=== PATIENT | male | born 2000 | race Caucasian/White ===

== ENCOUNTER 2021-10-09 14:46 | Emergency (ER) | payer BC, SELFPAY ==
[2021-10-09 14:50] VITALS: BP 128/70; PULSE 88; RESP 17; TEMP 37.1; O2SAT 98; BMI 23.7; BMI 39.9
--- NOTE | 2021-10-09 14:56 | XR_ITS ---
PROCEDURE INFORMATION: Exam: XR Sacrum and Coccyx, 2 or More Views Exam date and time: 10/09/2021 3:10 PM Age: 21 years old Clinical indication: Pain in coccyx area; Patient HX: Patient has fallen down some stairs 2 years ago and has had consistent pain since the fall 2 years ago. No recent injury. TECHNIQUE: Imaging protocol: XR of the sacrum and coccyx, 2 or more views. COMPARISON: No relevant prior studies available. FINDINGS: Bones/joints: Normal. No acute fracture. Soft tissues: Normal. IMPRESSION: No acute findings.
--- NOTE | 2021-10-09 15:22 | HMH.EDUTC ---
[facility] Disposition Clinical Impression: Tail bone pain Disposition: Home, Self-Care Condition on Discharge: Good Instructions: Non-Medication Pain Relief Additional Instructions: follow up with pcp for more work up if worsen or no improvement return or be seen in ed meds as ordered Prescriptions: predniSONE [Prednisone 20mg Tab] 20 mg PO BID #10 tab Prescription Printed Referrals: Kiran Woodall [Primary Care Provider] - Time of Disposition: 16:13 Medical Decision Making - Chase Inquiry Pt receiving controlled substance: No Vital Signs: 10/09/21 14:50 Temperature 98.7 F Temperature Source Oral Pulse Rate [Right Brachial] 88 Respiratory Rate 17 Blood Pressure [Right Arm] 128/70 Blood Pressure Mean [Right Arm] 89 Blood Pressure Source [Right Arm] Automatic Cuff Blood Pressure Position [Right Arm] Sitting 02 Sat by Pulse Oximetry 98 Oxygen Delivery Method Room Air [facility] HPI - General Chief complaint: Urgent [facility] Center Stated complaint: tailbone pain Time Seen by Provider: 10/09/21 15:22 Mode of Arrival: Ambulatory Source of Information: Patient Limitations: No Limitations Description of Symptoms (Recalled from Triage Doc. by RN): PATIENT REPORTS HE FELL IN 2019 AND BELIEVES HE INJURED HIS TAILBONE. HE STATES THE PAIN HAS COME AND GONE SINCE, BUT TODAY THE PAIN IS UNBEARABLE HEENT Symptoms (Recalled from RN notes): No Resp Symptoms (Recalled from RN notes): No Skin Symptoms (Recalled from RN notes): No MS Symptoms (Recalled from RN notes): Yes Functional Status (Recalled from RN notes): WNL - History of Present Illness Provider Complaint: 21 yr old male presents for tail bone pain. pt states in 2019 he fell down stairs and since then he has had pain that comes and goes. pt states on sunday he sat most of the day in a lawn chair and since then he has had pain only in his tail bone. no bladder or bowel issues. no injury since the fall in 2019 - Related Data Previous Rx's Medication Instructions Recorded predniSONE [Prednisone 20mg 20 mg PO BID #10 tab 10/09/21 Tab] - Worker's Comp Is this a Worker's Comp case?: No [facility] History - Hepatitis A Screen Attestation statement:: This patient has been screened for Hepatitis A risk factors. I have reviewed the patient's past medical history: Yes ROS Obtained: Yes Systems reviewed as appropriate & no additional complaints - Constitutional Constitutional: Reports system reviewed and no additional complaints, except as docu, Denies fever(s) - Eyes Eyes: Reports system reviewed and no additional complaints, except as docu, Denies itchy eyes - ENT Ears, Nose, Mouth, and Throat: Reports system reviewed and no additional complaints, except as docu, Denies sore throat - Cardiovascular Cardiovascular: Reports system reviewed and no additional complaints, except as docu, Denies chest pain - Respiratory Respiratory: Reports system reviewed and no additional complaints, except as docu, Denies chest congestion - Gastrointestinal Gastrointestingal: Reports: system reviewed and no additional complaints, except as docu. Denies: abdominal pain - Musculoskeletal Musculoskeletal: Reports system reviewed and no additional complaints, except as docu, Reports as per HPI - Integumentary/Breasts Skin/Breast: Reports system reviewed and no additional complaints, except as docu, Denies rash - Neurologic Neurologic: Reports system reviewed and no additional complaints, except as docu, Denies dizziness - Endocrine Endocrine: Reports system reviewed and no additional complaints, except as docu, Denies fatigue - Hematologic/Lymphatic Henatologic/Lymphatic: Reports system reviewed and no additional complaints, except as docu, Denies lymphadenopathy - Allergic/Immunologic Allergic/Immunologic: Reports system reviewed and no additional complaints, except as docu, Denies itchy eyes Physical Exam - General General appearance: alert, i
[2021-10-09 16:20] VITALS: BP 128/70; PULSE 88; RESP 17; TEMP 37.1; O2SAT 98
== END 2021-10-09 16:23 | disposition home or self-care (01) ==
PROVIDERS: Emergency Provider Nurse Practitioner Family; PCP Internal Medicine
DX: M53.3 Sacrococcygeal disorders, not elsewhere classified (principal)
CPT/HCPCS: 72220; 99212; G0463

== ENCOUNTER 2022-04-23 11:22 | Emergency (ER) | payer BC, SELFPAY ==
[2022-04-23 12:10] VITALS: BP 121/76; PULSE 76; RESP 18; TEMP 36.7; O2SAT 98; BMI 23.4
[2022-04-23 12:35] VITALS: BP 121/76; PULSE 76; RESP 18; TEMP 36.7; O2SAT 98
--- NOTE | 2022-04-23 13:04 | EXP.UTC ---
Discharge Plan Disposition Patient Disposition: Home, Self-Care Condition: Good Prescriptions Prescriptions: New polymyxin B sulf-trimethoprim [Polytrim] 10,000 unit- 1 mg/mL drops 2 drp ophthalmic (eye) Q6H 7 Days Qty: 10 0RF Rx Instructions: left eye while awake; do not exceed 6 doses in 24 hours No Action lamotrigine 25 mg Tablet 25 mg PO DAILY zonisamide 100 mg Capsule 100 mg PO DAILY lamotrigine 100 mg Tablet 100 mg PO DAILY Referrals Follow up/Referrals: Kiran Woodall [Primary Care Provider] - See instructions Activity Restrictions/Add. Instructions Additional Instructions/Restrictions: Wash hands well before and after applying drops Use drops as directed Follow up with your Eye Doctor if no improvement or any worsening of symptoms Straight to ER if any life threatening symptoms Clinical Impressions Clinical Impression: Conjunctivitis Stand Alone Forms Stand Alone Forms: Work/School Release Instructions Patient Instructions: Conjunctivitis, DI for Conjunctivitis Discharge ED Provider: Palma Noe [facility] General Stated complaint: LT eye redness Mode of Arrival: Ambulatory Source of Information: Patient Limitations: No Limitations Time Seen by Provider: 04/23/22 13:08 Description of Symptoms (Recalled from Triage Doc. by RN): PATIENT C/O REDNESS AND DRAINAGE TO LEFT EYE SINCE THIS MORNING HEENT Symptoms (Recalled from RN notes): Yes Resp Symptoms (Recalled from RN notes): No Skin Symptoms (Recalled from RN notes): No MS Symptoms (Recalled from RN notes): No Functional Status (Recalled from RN notes): WNL History of Present Illness Provider Complaint: Patient states that family member has had pink eye States that he woke up this morning with his left eye red and matted together States that as the day has went on it has continued so he came in to get it checked Related Data Home Medications Medication Instructions Recorded Confirmed lamotrigine 100 mg tablet 100 mg PO DAILY EPILEPSY 04/23/22 04/23/22 lamotrigine 25 mg tablet 25 mg PO DAILY EPILEPSY 04/23/22 04/23/22 zonisamide 100 mg capsule 100 mg PO DAILY EPILEPSY 04/23/22 04/23/22 Previous Rx's Medication Instructions Recorded polymyxin B sulfate 10,000 2 drp ophthalmic (eye) Q6H 7 days 04/23/22 unit-trimethoprim 1 mg/mL eye #10 mL drops (Polytrim) Allergies Allergy/AdvReac Type Severity Reaction Status Date / Time No Known Allergies Allergy Verified 04/23/22 12:29 Worker's Comp Is this a Worker's Comp case?: No [facility] Disclaimer: The information contained in this section may have been updated after the patient was seen, as this information can be updated by other users. Medical History (Updated 04/23/22 @ 13:08 by Palma Noe APRN) Seizure disorder Social History (Updated 04/23/22 @ 12:28 by Stacey Virk RN) Smoking Status: Current every day smoker alcohol intake: never current occupational status: other Travel in the last 8 weeks: None ROS Obtained: Yes All systems reviewed & no additional complaints except as documented and Yes Systems reviewed as appropriate & no additional complaints except as documented Constitutional Constitutional: Reports system reviewed and no additional complaints, except as documented and Reports as per HPI Eyes Eyes: Reports system reviewed and no additional complaints, except as documented, Reports as per HPI, Reports eye discharge and Reports irritation ENT Ears, Nose, Mouth, and Throat: Reports system reviewed and no additional complaints, except as documented and Reports as per HPI Cardiovascular Cardiovascular: Reports system reviewed and no additional complaints, except as documented and Reports as per HPI Respiratory Respiratory: Reports system reviewed and no additional complaints, except as documented and Reports as per HPI Gastrointestinal Gastrointestingal: Reports system reviewed and no additional complaints, exc
== END 2022-04-23 13:14 | disposition home or self-care (01) ==
PROVIDERS: Emergency Provider Nurse Practitioner; PCP Internal Medicine
DX: H10.9 Unspecified conjunctivitis (principal)
CPT/HCPCS: 99212; 99213; G0463

== ENCOUNTER 2022-07-05 13:45 | Emergency (ER) | payer BC, SELFPAY ==
[2022-07-05 13:46] VITALS: BP 127/68; PULSE 120; RESP 20; TEMP 37; O2SAT 97; BMI 21.2
--- NOTE | 2022-07-05 14:06 | EXP.UTC ---
Discharge Plan Disposition Patient Disposition: Home, Self-Care Condition: Good Prescriptions Prescriptions: New dicyclomine 10 mg capsule 10 mg PO TID PRN (Reason: cramping) Qty: 12 0RF ondansetron 4 mg tablet,disintegrating 4 mg PO Q8H PRN (Reason: nausea and vomiting) Qty: 10 0RF No Action lamotrigine 25 mg Tablet 25 mg PO DAILY zonisamide 100 mg Capsule 100 mg PO DAILY lamotrigine 100 mg Tablet 100 mg PO DAILY Referrals Follow up/Referrals: Kiran Woodall [Primary Care Provider] - See instructions Activity Restrictions/Add. Instructions Additional Instructions/Restrictions: Drink extra fluids with and between meals. If you have difficulty drinking, try very small amounts of water or suck on ice chips. ? Avoid fruit juices, as these do not replace minerals and can actually increase diarrhea. ? Children and adults can use sports drinks to replenish electrolytes. Younger children and infants should use products formulated for children, like oral rehydration solutions. ? Eat food in small amounts and let your stomach recover. ? Get lots of rest. You may feel tired or weak. ? No greasy or fried foods for the next 24-48 hours BRAT diet Bananas Rice Apples and [place]ano ? Make sure to drink plenty of liquids ? Return if needed ? Straight to ER if any life threatening symptoms ? Zofran as prescribed ? You was given an outpatient order for diarrhea panel, please collect specimen and bring back to outpatient lab then [facility] or follow up with family doctor for results ? Follow up with family doctor in the next 48-72 hours if no improvement or any worsening of symptoms Clinical Impressions Clinical Impression: Nausea vomiting and diarrhea Stand Alone Forms Stand Alone Forms: Work/School Release Instructions Patient Instructions: Diarrhea, DI for Dehydration -- Adult, DI for Nausea -- Adult Discharge ED Provider: Palma Noe [facility] [place] HPI General Stated complaint: v/d weakness Time Seen by Provider: 07/05/22 14:07 History of Present Illness Provider Complaint: Patient states that he has been around his kids that has had several different viruses and COVID States that he had Vomiting on Sunday but has continued to have diarrhea States that he has continued to have upset stomach and just not feeling well States that he has been drinking Gatoraid to help stay hydrated but today he was still having diarrhea so he came in worried that he may be getting a little dehydrated Related Data Home Medications Medication Instructions Recorded Confirmed lamotrigine 100 mg tablet 100 mg PO DAILY EPILEPSY 04/23/22 07/05/22 lamotrigine 25 mg tablet 25 mg PO DAILY EPILEPSY 04/23/22 07/05/22 zonisamide 100 mg capsule 100 mg PO DAILY EPILEPSY 04/23/22 07/05/22 Previous Rx's Medication Instructions Recorded dicyclomine 10 mg capsule 10 mg PO TID PRN cramping #12 caps 07/05/22 ondansetron 4 mg disintegrating 4 mg PO Q8H PRN nausea and 07/05/22 tablet vomiting #10 tabs Allergies Allergy/AdvReac Type Severity Reaction Status Date / Time No Known Allergies Allergy Verified 07/05/22 14:09 [facility] Disclaimer: The information contained in this section may have been updated after the patient was seen, as this information can be updated by other users. Medical History (Updated 07/05/22 @ 14:19 by Palma Noe APRN) Seizure disorder Social History Smoking Status: Current every day smoker alcohol intake: never current occupational status: other Travel in the last 8 weeks: None ROS Obtained: Yes All systems reviewed & no additional complaints except as documented and Yes Systems reviewed as appropriate & no additional complaints except as documented Constitutional Constitutional: Reports system reviewed and no additional complaints, exc
[2022-07-05 14:07] LABS: Coronavirus 19, PCR Not Detected (NotDetected); Influenza A, PCR Not Detected (NotDetected); Influenza B, PCR Not Detected (NotDetected)
[2022-07-05 14:07] LABS: UTC Strep Screen (Rapid) Negative (Negative)
[2022-07-05 15:03] LABS: Adenovirus F 40/41, stool Not Detected (NotDetected); Campylobacter Not Detected (NotDetected); Clostridium Difficile A/B, PCR Not Detected (NotDetected); Cryptosporidium Not Detected (NotDetected); Cyclospora Cayetanesis Not Detected (NotDetected); Entamoeba histolytica Not Detected (NotDetected); Enteroaggregative E coli Not Detected (NotDetected); Enteropathogenic E coli Not Detected (NotDetected); Enterotoxigenic E coli Not Detected (NotDetected); Giardia lamblia Not Detected (NotDetected); Norovirus Not Detected (NotDetected); Plesimonas Shigalloides, PCR Not Detected (NotDetected); Rotavirus A Not Detected (NotDetected); Salmonella, PCR Not Detected (NotDetected); Sapovirus Not Detected (NotDetected); Shiga-like toxin E coli Not Detected (NotDetected); Shigella Enterovasive E coli Not Detected (NotDetected); Vibrio Cholerae Not Detected (NotDetected); Vibrio, PCR Not Detected (NotDetected); Yersinia Entercolitica, PCR Not Detected (NotDetected)
[2022-07-05 15:09] VITALS: BP 127/68; PULSE 98; RESP 20; TEMP 37; O2SAT 97
[2022-07-05 17:51] LABS: Astrovirus Detected (NotDetected)
== END 2022-07-05 15:09 | disposition home or self-care (01) ==
PROVIDERS: Emergency Provider Nurse Practitioner; PCP Internal Medicine
DX: R11.2 Nausea with vomiting, unspecified (principal); R19.7 Diarrhea, unspecified; A08.32 Astrovirus enteritis; F17.210 Nicotine dependence, cigarettes, uncomplicated
CPT/HCPCS: 87507; 87880; 96360; 99212; 99213; 99214; C9803; G0463; U0003; U0005

== ENCOUNTER 2023-12-25 19:17 | Emergency (ER) | payer BC, SELFPAY ==
[2023-12-25 19:33] VITALS: BP 113/71; PULSE 121; RESP 20; TEMP 37.2; O2SAT 98; BMI 21.7
--- NOTE | 2023-12-25 19:37 | ED_ITS ---
Discharge Plan Disposition Patient Disposition: Home, Self-Care Condition: Good Prescriptions Prescriptions: New ondansetron 4 mg tablet,disintegrating 4 mg PO Q8H PRN (Reason: nausea and vomiting) Qty: 15 0RF No Action lamotrigine 25 mg tablet 25 mg PO BID Patient Comments: TAKE 1 TABLET 2 TIMES EACH DAY zonisamide 100 mg capsule 100 mg PO BID Patient Comments: TAKE 1 CAPSULE 2 TIMES EACH DAY lamotrigine 100 mg tablet 100 mg PO BID Patient Comments: TAKE 1 TABLET 2 TIMES EACH DAY lamotrigine 25 mg Tablet 25 mg PO DAILY zonisamide 100 mg Capsule 100 mg PO DAILY lamotrigine 100 mg Tablet 100 mg PO DAILY dicyclomine 10 mg capsule 10 mg PO TID PRN (Reason: cramping) Qty: 12 0RF ondansetron 4 mg tablet,disintegrating 4 mg PO Q8H PRN (Reason: nausea and vomiting) Qty: 10 0RF Referrals Follow up/Referrals: Martha Ayers APRN [Primary Care Provider] - See instructions Activity Restrictions/Add. Instructions Additional Instructions/Restrictions: *Monitor Temp, Over the counter Motrin or Tylenol as directed/as needed Tylenol every 4 hours and Motrin every 6 hours (as long as your family doctor has told you that you can take it) for fever or pain. and straight to ER if unable to lower temp less than 101.0 after medication given *Warm salt water gargles may help to soothe the throat *Throat Lozenges? *Warm fluids like tea with honey may help to soothe the throat? *Sleep elevated *Humidifier/Vaporizer Your throat swab was sent for culture. Those results are typically sent to your primary care. Be sure to follow up in 2-3 days with your family doctor/primary care physician if no improvement so they can review those result and treat if necessary. If you don?t have a primary care doctor, I recommend you get one but in the mean time, you will have to return to a walk in clinic Follow up IMMEDIATELY for new or worsening symptoms or no Noticeable improvement over the next 48-72 hours. 911 for difficulty breathing or swallowing You were tested for today for Upper Respiratory Panel with COVID19 your test result should be back in the next 24 hours, you may check for your results on the [facility] My Health Portal Clinical Impressions Clinical Impression: Viral syndrome Stand Alone Forms Stand Alone Forms: Work/School Release Instructions Patient Instructions: Nausea and Vomiting-Adult Print Language Print Language: Luxembourger Discharge ED Provider: Palma Noe [facility] HPI General Stated complaint: body aches, v/d sore throat Mode of Arrival: Ambulatory Source of Information: Patient Limitations: No Limitations Time Seen by Provider: 12/25/23 19:37 Description of Symptoms (Recalled from Triage Doc. by RN): Reports body aches, headache, vomiting, sore throat and diarrhea. HEENT Symptoms (Recalled from RN notes): Yes Resp Symptoms (Recalled from RN notes): No Skin Symptoms (Recalled from RN notes): No MS Symptoms (Recalled from RN notes): No Functional Status (Recalled from RN notes): wnl History of Present Illness Provider Complaint: Patient states he started feeling bad over the weekend with body aches and chills and today he has been having body aches, chills, headache, sorethroat, N/V/D States this evening he was still not feeling well so he came in to get checked Related Data Home Medications ?Medication ?Instructions ?Recorded ?Confirmed lamotrigine 100 mg tablet 100 mg PO DAILY EPILEPSY 04/23/22 07/05/22 lamotrigine 25 mg tablet 25 mg PO DAILY EPILEPSY 04/23/22 07/05/22 zonisamide 100 mg capsule 100 mg PO DAILY EPILEPSY 04/23/22 07/05/22 lamotrigine 100 mg tablet 100 mg PO BID 07/13/23 07/13/23 lamotrigine 25 mg tablet 25 mg PO BID 07/13/23 07/13/23 zonisamide 100 mg capsule 100 mg PO BID 07/13/23 07/13/23 Previous Rx's ?Medication ?Instructions ?Recorded dicyclomine 10 mg capsule 10 mg PO TID PRN cramping #12 caps 07/05/22 ondansetron 4 mg disintegrating 4 mg PO Q8H PRN nausea and 07/05/22 tablet vomiting #10 tabs ondansetron 4 mg disintegrating 4 mg PO Q8H PRN nausea and 12/25/23 tablet vomiting #15 tabs Allergies Allergy/AdvReac Type Severity Reaction Status Date / Time No Known Allergies Allergy Verified 09/18/23 08:37 Worker's Comp Is this a Worker's Comp case?: No [facility] Disclaimer: The information contained in this section may have been updated after the patient was seen, as this information can be updated by other users. Medical History (Updated 12/25/23 @ 19:46 by Palma Noe APRN) Seizure disorder Epilepsy Social History (System 09/18/23 @ 08:37 by Maritza Sosa) Smoking Status: Unknown if ever smoked alcohol intake: never current occupational status: employed and other Travel in the last 8 weeks: None ROS Obtained: Yes All systems reviewed & no additional complaints except as documented and Yes Systems reviewed as appropriate & no additional complaints except as documented Constitutional Constitutional: Reports system reviewed and no additional complaints, except as documented, Reports as per HPI, Reports body ache, Reports chills, Reports fever(s) and Reports headache(s) ENT Ears, Nose, Mouth, and Throat: Reports system reviewed and no additional complaints, except as documented, Reports as per HPI, Reports headache(s) and Reports sore throat Cardiovascular Cardiovascular: Reports system reviewed and no additional complaints, except as documented and Reports as per HPI Respiratory Respiratory: Reports system reviewed and no additional complaints, except as documented and Reports as per HPI Gastrointestinal Gastrointestingal: Reports system reviewed and no additional complaints, except as documented, as per HPI, diarrhea, nausea and vomiting; Denies abdominal pain Neurologic Neurologic: Reports headache(s) Physical Exam General General appearance: alert and in no apparent distress ENT ENT exam: Present mucous membranes moist Expanded ENT Exam Nose exam: Absent sinus tenderness Throat exam: Present tonsillar erythema; Absent tonsillomegaly or tonsillar exudate Respiratory Respiratory exam: Present normal lung sounds bilaterally; Absent respiratory distress or wheezes Cardiovascular Cardiovascular exam: Present regular rate, normal rhythm and normal heart sounds Abdominal Exam Abdominal exam: Present soft and normal bowel sounds; Absent distention or tenderness Neurological Exam Neurological exam: Present alert, oriented X3 and normal gait Medical Decision Making Medical Records Screening: Per USPSTF and CDC recommendations, given the prevalence of disease in our region, it is our hospital?s policy to screen for HIV and viral Hepatitis for all patients aged 18 and over and those with ongoing risk factors. Chase Inquiry Pt receiving controlled substance: No Chase was queried for this patient: No Vital Signs: 12/25/23 19:33 Temperature 99.0 F Temperature Source Oral Pulse Rate [Radial] 121 H Respiratory Rate 20 Blood Pressure [Right Arm] 113/71 Blood Pressure Mean [Right Arm] 85 Blood Pressure Source [Right Arm] Automatic Cuff Blood Pressure Position [Right Arm] Sitting 02 Sat by Pulse Oximetry 98 Oxygen Delivery Method Room Air Lab Data Lab results reviewed: Yes I reviewed the patient's lab results.
[2023-12-25] MEDS: ONDANSETRON 4MG ODT 4 MG SL (19:46)
[2023-12-25 19:52] LABS: UTC Strep Screen (Rapid) Negative (Negative)
[2023-12-25 19:55] VITALS: BP 113/71; PULSE 121; RESP 20; TEMP 37.2; O2SAT 98
[2023-12-25 20:44] LABS: Coronavirus 19, PCR Not Detected (NotDetected); Influenza A, PCR Not Detected (NotDetected); Influenza B, PCR Not Detected (NotDetected)
== END 2023-12-25 19:56 | disposition home or self-care (01) ==
PROVIDERS: Emergency Provider Nurse Practitioner; PCP Nurse Practitioner
DX: R51.9 Headache, unspecified (principal); R11.2 Nausea with vomiting, unspecified; R07.0 Pain in throat; B34.9 Viral infection, unspecified
CPT/HCPCS: 87636; 87880; 99212; 99214; G0463; Q0162